=== PATIENT | male | born 1995 | race Caucasian/White ===

== ENCOUNTER 2024-10-18 06:51 | Outpatient (RCR) | payer OTHER, SELFPAY | END 2024-10-18 10:11 | disposition home or self-care (01) | LOC: HO.PT 06:51 | PROVIDERS: PCP Internal Medicine; Visit Provider Internal Medicine | DX: M25.562 Pain in left knee (principal) | CPT/HCPCS: 97110; 97112; 97140; 97162; 97530; 97535 ==